=== PATIENT | female | born 1950 | race Caucasian/White ===

== ENCOUNTER 2020-12-02 07:13 | Outpatient (CLI) | payer MEDICARE, SELFPAY ==
[2020-12-02 08:24] LABS: LDL Cholesterol Direct 116 mg/dL
[2020-12-02 08:28] LABS: Alanine Aminotransferase 26 U/L (4-35); Albumin Level 4.6 g/dL (3.5-5.1); Alkaline Phosphatase 58 U/L (38-126); Anion Gap 10 mmol/L (8-16); Aspartate Amino Transferase 38 U/L (14-36); Bilirubin,Total 0.9 mg/dL (0.2-1.3); Blood Urea Nitrogen 9 mg/dL (7-17); Calcium 9.1 mg/dL (8.4-10.2); Carbon Dioxide 27 mmol/L (22-30); Chloride 95 mmol/L (98-107); Cholesterol 246 mg/dL (0-200); Estimated Glomerular Filt Rate > 60; Glucose 120 mg/dL (65-105); Potassium 4.3 mmol/L (3.4-5.0); Sodium 132 mmol/L (137-145); Triglycerides 102 mg/dL (<150)
[2020-12-02 08:35] LABS: HDL Direct 119 mg/dL
[2020-12-02 08:39] LABS: Hemoglobin A1C 4.9 % (<5.7)
== END 2020-12-02 07:14 | disposition home or self-care (01) ==
PROVIDERS: PCP Emergency Medicine; Visit Provider Emergency Medicine
DX: E78.5 Hyperlipidemia, unspecified (principal); E11.9 Type 2 diabetes mellitus without complications
CPT/HCPCS: 36415; 80053; 80061; 83036

== ENCOUNTER 2020-12-10 07:09 | Outpatient (CLI) | payer MEDICARE, SELFPAY ==
[2020-12-10 07:34] LABS: Hemoglobin A1C 4.9 % (<5.7)
== END 2020-12-10 07:10 | disposition home or self-care (01) ==
PROVIDERS: PCP Emergency Medicine; Visit Provider Emergency Medicine
DX: R73.09 Other abnormal glucose (principal)
CPT/HCPCS: 36415; 83036

== ENCOUNTER 2023-07-28 12:53 | Emergency (ER) | payer MEDICARE, SELFPAY ==
--- NOTE | ~2023-07-28 | XR_ITS ---
EXAMINATION: XR chest 2V DATE: 07/28/2023 13:54 INDICATION: Shortness of breath. Chest tightness. TECHNIQUE: Frontal and lateral views of the chest were obtained. COMPARISON: Chest 2 views 07/01/2015 FINDINGS: There is mild atelectasis in right mid and lower lung zones and left lower lung zone. No pl eural effusion or pneumothorax. The heart size is normal. There are old healed bilateral rib fracture s. There are 2 burst fractures in thoracic spine, likely chronic. There is an old healed fracture of the sternum. IMPRESSION: 1. Mild atelectasis in right mid and lower lung zones and left lower lung zone. Reviewed, dictated and finalized at location A.
[2023-07-28 12:48] VITALS: BP 137/77; PULSE 112; RESP 22; TEMP 36.8; O2SAT 94
--- NOTE | 2023-07-28 12:57 | ECG_ITS ---
Measurements Intervals [place] Rate: 90 P: 64 MT: 171 QRS: -26 QRSD: 81 T: 41 QT: 365 QTc: 448 Interpretive Statements SINUS RHYTHM EARLY PRECORDIAL R/S TRANSITION INFERIOR INFARCT, AGE INDETERMINATE BASELINE ARTIFACT- I, AVR, AVL, AVF ABNORMAL ECG NO PREVIOUS ECG AVAILABLE FOR COMPARISON Electronically Signed On 07-28-2023 13:05:58 CDT by Jersey España D.O.
[2023-07-28 12:58] VITALS: O2SAT 93
[2023-07-28 13:15] LABS: Basophils Absolute Auto 0.1 K/mm3 (0.0-0.1); Basophils Percent Auto 0.7 % (0.2-1.2); Eosinophils Absolute Auto 0.3 K/mm3 (0-0.3); Eosinophils Percent Auto 2.9 % (0-4.4); Hemoglobin 12.8 g/dL (12.0-15.0); Immature Granulocyte Absolute 0.03 K/mm3 (0.00-0.031); Immature Granulocyte Percent A 0.3 % (0-0.5); Lymphocytes Absolute Auto 2.86 K/mm3 (0.9-3.2); Lymphocytes Percent Auto 31.4 % (18.3-44.2); Mean Corpuscular HGB Conc 33.7 g/dl (32-36); Mean Corpuscular Hemoglobin 31.8 pg (26-34); Mean Corpuscular Volume 94.5 fl (80-100); Monocytes Absolute Auto 0.9 K/mm3 (0.1-0.6); Monocytes Percent Auto 9.4 % (2.6-8.5); Neutrophils Absolute Auto 5.1 K/mm3 (1.3-6.7); Neutrophils Percent Auto 55.3 % (45.5-73.1); Platelet Count Result 284 k/mm3 (150-375); Red Blood Count 4.02 M/mm3 (4.2-5.4); Red Cell Distribution Width 15.3 % (11.5-14.5); White Blood Count 9.1 K/mm3 (4.5-10.0)
[2023-07-28 13:27] LABS: Alanine Aminotransferase 24 U/L (6-35); Albumin Level 4.4 g/dL (3.5-5.1); Alkaline Phosphatase 84 U/L (38-126); Anion Gap 16 mmol/L (8-16); Aspartate Amino Transferase 37 U/L (14-36); Bilirubin,Total 0.4 mg/dL (0.2-1.3); Blood Urea Nitrogen 12 mg/dL (7-17); Calcium 8.5 mg/dL (8.4-10.2); Carbon Dioxide 20 mmol/L (22-30); Chloride 100 mmol/L (98-107); Estimated Glomerular Filt Rate > 60; Glucose 102 mg/dL (65-110); Potassium 4.2 mmol/L (3.4-5.0); Sodium 136 mmol/L (137-145)
--- NOTE | 2023-07-28 14:52 | ED.SOB ---
HPI - SOB/Dyspnea General Chief Complaint: Shortness of Breath/Dyspnea Stated Complaint: chest tightness, sob Time Seen by Provider: 07/28/23 13:37 Source: patient Limitations: no limitations History of Present Illness HPI Narrative: 72-year-old female presents today with complaints of choking on a piece of chicken with shortness of breath for about 15 minutes after. Patient states that she choked on a piece of chicken was able to cough it but complained of shortness of breath for about 15 minutes after. Her assisted living wanted her to come in to be evaluated. Upon arrival patient denied any chest pain, shortness of breath, or any other difficulties at this time. Related Data Home Medications Medication Instructions Recorded Confirmed cholecalciferol (vitamin D3) 100 4,000 unit PO DAILY 12/12/19 01/21/22 mcg (4,000 unit) capsule Allergies Allergy/AdvReac Type Severity Reaction Status Date / Time No Known Allergies Allergy Verified 07/28/23 13:04 Review of Systems Review of Systems: All systems reviewed & are unremarkable except as noted in HPI and below PMFSH Past Medical History Medical History (Updated 07/28/23 @ 16:09 by Maricarmen Mcgrath APRN) Depression Hyperglycemia Hyperlipidemia Osteoporosis Family History Family History Father Patient's father is , Onset Age: 95 Mother Family history of malignant neoplasm, Onset Age: 76 Social History Social History Smoking status: Heavy tobacco smoker Alcohol intake: current Exam Const: General: cooperative, healthy appearing, comfortable, no acute distress and well developed Orientation/consciousness: patient oriented x3 HENMT: Head: normal to inspection Eyes: General: appearance normal, both eyes and all related structures Resp: Effort & Inspection: normal respiratory effort and able to speak in complete sentences Auscultation: clear to auscultation bilaterally Cardio: Rate: regular rate Rhythm: regular rhythm Heart sounds: S1 normal heart sound present and S2 normal heart sound present Neuro: General: patient oriented x3 Course Vital Signs Vital signs: Vital Signs Temperature 98.3 F 07/28/23 12:48 Pulse Rate 112 H 07/28/23 12:48 Respiratory Rate 22 H 07/28/23 12:48 Blood Pressure 137/77 07/28/23 12:48 Pulse Oximetry 94 07/28/23 12:48 Oxygen Delivery Room Air 07/28/23 12:48 Temperature 98.3 F 07/28/23 12:48 Pulse Rate 112 H 07/28/23 12:48 Respiratory Rate 22 H 07/28/23 12:48 Blood Pressure 137/77 07/28/23 12:48 Pulse Oximetry 93 07/28/23 12:58 Oxygen Delivery Room Air 07/28/23 12:58 MDM - SOB/Dyspnea MDM Narrative Medical decision making narrative: 72-year-old female HPI as noted. Differential as below. Work-up to include CBC, CMP, troponin, EKG, chest x-ray. Patient without chest pain during her stay in. CBC without concerning findings. CMP without concerning findings. Chest x-ray with nothing acute. Troponin negative. EKG showing sinus rhythm. Patient will be discharged back to assisted living. She is in agreement with plan of care. Differential Diagnosis Differential diagnosis: Likely community acquired pneumonia and other (Anxiety, SD, pneumonia) Medical Records Attestation: I reviewed the patient's medical records. Lab Data Attestation: I reviewed the patient's lab results. 07/28/23 13:09 07/28/23 13:09 Labs: Lab Results 07/28/23 Range/Units 13:09 WBC 9.1 (4.5-10.0) K/mm3 RBC 4.02 L (4.2-5.4) M/mm3 Hgb 12.8 (12.0-15.0) g/dL Hct 38.0 (37.0-47.0) % MCV 94.5 (80-100) fl MCH 31.8 (26-34) pg MCHC 33.7 (32-36) g/dl RDW 15.3 H (11.5-14.5) % Plt Count 284 (150-375) k/mm3 MPV 9.0 (7.4-10.4) fl Immature Gran % (Auto) 0.3 (0-0.5) % Neut % (Auto) 55.3 (45.5-73.1)
[2023-07-28 15:38] LABS: Troponin I < 0.012 ng/mL (0.000-0.034)
== END 2023-07-28 16:18 | disposition home or self-care (01) ==
PROVIDERS: General Practice; Emergency Provider Nurse Practitioner Family; PCP Nurse Practitioner Family
DX: R07.9 Chest pain, unspecified (principal); E78.5 Hyperlipidemia, unspecified; F17.200 Nicotine dependence, unspecified, uncomplicated
CPT/HCPCS: 36415; 71046; 80053; 84484; 85025; 93005; 99284

== ENCOUNTER 2024-01-28 11:42 | Emergency (ER) | payer MEDICARE, SELFPAY ==
--- NOTE | ~2024-01-28 | XR_ITS ---
XR pelvis 1-2V DATE: 01/28/2024 12:35 INDICATION: Trauma TECHNIQUE: 2 AP views COMPARISON: None FINDINGS: Osteopenia. Dextroscoliosis and degenerative change of the lumbar spine. Normal alignment at the pubic symphysis and sacroiliac joints. No pelvic fracture or bone destruction is detected. Hip joint spaces appear symmetric and well preser tawana. No fracture or dislocation is evident at either hip. IMPRESSION: Osteopenia Reviewed, dictated and finalized at location A. IMPRESSION: Osteopenia
--- NOTE | ~2024-01-28 | CT_ITS ---
EXAMINATION: CT brain wo con DATE: 01/28/2024 13:07 INDICATION: Left-sided weakness. Transient ischemic attack 2 days ago. TECHNIQUE: Computed tomography (CT) of the head was performed without intravenous contrast. The mA wa s adjusted according to patient size. Iterative reconstruction technique was employed. Exam dose: 11 35.00 mGy-cm total exam DLP. COMPARISON: None FINDINGS: No intracranial mass lesion or hemorrhage, midline shift or mass effect is noted. Small lac unar infarct in the right periventricular area. Bilateral carotid siphon internal carotid artery calcifications. Nonspecific diminished attenuation c erebral white matter, likely due to chronic small vessel ischemic changes. No subdural or epidural hematoma. There is central and cortical cerebral and cerebellar moderate atrophy. No skull fracture or bone destruction is detected. The paranasal sinuses and mastoid air cells are unremarkable. IMPRESSION: Small chronic lacunar infarct in the right periventricular area. Diminished attenuation cerebral white matter, likely due to chronic small vessel ischemic changes. Bi lateral carotid siphon internal carotid artery calcifications Reviewed, dictated and finalized at Location A. Reviewed, dictated and finalized at location A. IMPRESSION: Small chronic lacunar infarct in the right periventricular area. Diminished attenuation cerebral white matter, likely due to chronic small vesse l ischemic changes. Bilateral carotid siphon internal carotid artery calcificat ions
--- NOTE | ~2024-01-28 | CT_ITS ---
EXAMINATION: CTA brain carotid DATE: 01/28/2024 13:51 INDICATION: Left hemiparesis. TECHNIQUE: Computed tomographic angiography (CTA) of the head was performed with 100 mL Omnipaque-350 intravenous contrast. CTA of the neck was performed with intravenous contrast. Automated exposure co ntrol and iterative reconstruction technique were employed. The dose-length product was 937.36 mGy-cm . Maximum intensity projection and volume rendered 3D-reconstructions were created by the [employer] t on a separate workstation. COMPARISON: Head CT 01/28/2024 FINDINGS: HEAD CTA: There are scattered areas of low attenuation in the cerebral white matter. There is no intr acranial hemorrhage, acute infarction, or abnormal intracranial mass lesion. The ventricles are brigido l in size. The orbits are normal. There is mild mucosal thickening in the ethmoid sinuses. The mastoi d air cells are normal. Right vertebral artery is dominant. There is no significant stenosis of basil ar artery or the posterior cerebral arteries. The posterior communicating arteries are normal. There is no significant stenosis of intracranial internal carotid arteries or anterior cerebral arteries. A nterior communicating artery is normal. 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 There is no aneurysm. NECK CTA: There are airspace opacities in left upper lobe and superior segment left lower lobe. There are mild airspace opacities in right upper lobe. There is mediastinal and left hilar lymphadenopathy . There is left supraclavicular lymphadenopathy. There is no significant stenosis of the vertebral nati dies. There is plaque in the proximal internal carotid arteries. There is 0% stenosis of the proximal right internal carotid artery relative to normal distal artery lumen diameter (NASCET criteria). The re is 0% stenosis of the proximal left internal carotid artery relative to normal distal artery lumen diameter. There is severe cervical spondylosis. IMPRESSION: 1. Mild nonspecific cerebral white matter disease, which likely represents chronic small vessel ische florence disease. 2. 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 3. 0% stenosis of the proximal internal carotid arteries relative to normal distal artery lumen diame ters (NASCET criteria). Reviewed, dictated and finalized at location E. IMPRESSION: 1. Mild nonspecific cerebral white matter disease, which likely represents sparmaker ross small vessel ischemic disease. 2. 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 3. 0% stenosis of the proximal internal carotid arteries relative to normal dis jatin artery lumen diameters (NASCET criteria).
--- NOTE | ~2024-01-28 | XR_ITS ---
XR chest 1V portable DATE: 01/28/2024 12:35 INDICATION: Left-sided weakness. Fall. TECHNIQUE: Portable AP chest on 01/27/2022 4 at 1233 hours COMPARISON: 07/28/2023 2 view chest FINDINGS: There is patchy infiltrate in the left midlung. Mild discoid atelectasis or scarring in the right lower lung. Normal heart size. Aortic calcification and unfolding. Levoscoliosis and degenerative spurring of the thoracic spine. Diffuse osteopenia. IMPRESSION: Patchy infiltrate, left midlung Mild discoid atelectasis or scarring, right lower lung Reviewed, dictated and finalized at location A.
[2024-01-28 11:43] VITALS: BP 165/80; PULSE 87; RESP 18; TEMP 37.2; O2SAT 95
[2024-01-28 12:02] VITALS: PULSE 88
--- NOTE | 2024-01-28 12:03 | ECG_ITS ---
Measurements Intervals [place] Rate: 87 P: 46 NE: 152 QRS: -5 QRSD: 73 T: -1 QT: 368 QTc: 443 Interpretive Statements SINUS RHYTHM INFERIOR INFARCT, AGE INDETERMINATE BASELINE ARTIFACT- I, II, III, AVR, AVL, AVF, V1-V6 ABNORMAL ECG COMPARED TO ECG 07/28/2023 13:00:45 NO SIGNIFICANT CHANGES Electronically Signed On 01-28-2024 15:10:34 CDT by Jersey España D.O.
[2024-01-28 12:12] LABS: Glucose Point of Care 153 mg/dl (65-105)
[2024-01-28 12:20] VITALS: BP 161/74; PULSE 97; RESP 20; O2SAT 96
--- NOTE | 2024-01-28 12:22 | ED.WEAKNESS ---
HPI - Weakness General Chief complaint: Weakness Stated complaint: weakness Time Seen by Provider: 01/28/24 12:07 Source: patient and EMS Mode of arrival: EMS Limitations: no limitations History of Present Illness HPI Narrative: 73-year-old female presenting for multiple complaints today. Patient lives at a assisted living facility and had a fall this morning. Staff found her on the ground. When they got her up they found that she seemed to be weak on her left side compared to right. Patient states she just feels weak all over. She says she got up this morning and felt weak and then fell down. Currently asymptomatic per patient. All other symptoms and complaints are negative as per ROS. According to EMS, assisted living facility staff says patient had a TIA on Monday but they have no further information about this at all consistent which is in the chart and they did not know where she went and patient also has no idea. Related Data Home Medications Medication Instructions Recorded Confirmed cholecalciferol (vitamin D3) 100 4,000 unit PO DAILY 12/12/19 01/21/22 mcg (4,000 unit) capsule Allergies Allergy/AdvReac Type Severity Reaction Status Date / Time No Known Allergies Allergy Verified 07/28/23 13:04 Review of Systems Review of Systems: All systems reviewed & are unremarkable except as noted in HPI and below PMFSH Past Medical History Medical History (Updated 01/28/24 @ 14:58 by bAhishek Echevarria MD) Depression Hyperglycemia Hyperlipidemia Osteoporosis Family History Family History Father Patient's father is , Onset Age: 95 Mother Family history of malignant neoplasm, Onset Age: 76 Social History Social History Smoking status: Heavy tobacco smoker Alcohol intake: current Exam Narrative: Constitutional: Generally well appearing, no acute distress Head: Atraumatic, no deformities. Eyes: Pupils equal, round, and reactive to light. Neck: Supple, no tracheal deviation, no JVD. ENMT: Mucous membranes moist Cardiovascular: S1, S2 auscultated. No murmurs, rubs, or gallops. No S3/S4. Normal Distal pulses. No peripheral edema. Respiratory: Lung sounds equal. No wheezes, rales, or rhonchi. Gastrointestinal: Abdomen was soft and non-tender. Non-distended. No rebound or guarding. Genitourinary: Deferred Musculoskeletal: Normal muscle tone and bulk. No obvious deformities or tenderness over extremities. Skin: No rashes. Neurological: Strength 5/5 in right-sided extremities, 4/5 in left-sided extremities. Cranial nerves I-XII grossly intact. Distal sensation intact. Appears to have some left hemineglect. When asked to lift up both arms, she will only lift the right arm. Mental Status: Awake, alert and oriented x3. Follows commands Course Vital Signs Vital signs: Vital Signs Temperature 37.2 C 01/28/24 11:43 Pulse Rate 87 01/28/24 11:43 Respiratory Rate 18 01/28/24 11:43 Blood Pressure 165/80 H 01/28/24 11:43 Pulse Oximetry 95 01/28/24 11:43 Oxygen Delivery Room Air 01/28/24 11:43 Temperature 37.2 C 01/28/24 11:43 Pulse Rate 95 01/28/24 13:52 Respiratory Rate 18 01/28/24 13:52 Blood Pressure 156/91 H 01/28/24 13:52 Pulse Oximetry 98 01/28/24 13:52 Oxygen Delivery Room Air 01/28/24 11:43 MDM - Weakness MDM Narrative Medical decision making narrative: 73-year-old female presenting for concerns for possible stroke after a fall at her nursing facility today. Found on the ground this morning. Unknown last known well however staff Report likely around 9:00 p.m. last night. Patient drink a bottle wine last night which is typical for her. on exam she is hypertensive, generally well-appearing, but seems to have some left-sided bell-neglect. When asked to lift her arms up, she only left upper r
[2024-01-28 12:24] LABS: Basophils Percent Auto 0.3 % (0.2-1.2); Eosinophils Percent Auto 0.1 % (0-4.4); Hematocrit 39.7 % (37.0-47.0); Hemoglobin 13.7 g/dL (12.0-15.0); Immature Granulocyte Absolute 0.07 K/mm3 (0.00-0.031); Immature Granulocyte Percent A 0.5 % (0-0.5); Immature Platelet Fraction Pct 6.7 % (0.9-11.2); Lymphocytes Absolute Auto 0.89 K/mm3 (0.9-3.2); Lymphocytes Percent Auto 6.1 % (18.3-44.2); Mean Corpuscular HGB Conc 34.5 g/dl (32-36); Mean Corpuscular Hemoglobin 32.1 pg (26-34); Mean Platelet Volume 10.3 fl (7.4-10.4); Monocytes Absolute Auto 1.1 K/mm3 (0.1-0.6); Monocytes Percent Auto 7.8 % (2.6-8.5); Neutrophils Absolute Auto 12.4 K/mm3 (1.3-6.7); Neutrophils Percent Auto 85.2 % (45.5-73.1); Platelet Count Result 134 k/mm3 (150-375); Red Blood Count 4.27 M/mm3 (4.2-5.4); Red Cell Distribution Width 13.7 % (11.5-14.5); White Blood Count 14.6 K/mm3 (4.5-10.0)
[2024-01-28 12:34] LABS: INR 1.2; Partial Thromboplastin Time 30.1 SECONDS (22.3-36.8)
[2024-01-28 12:35] LABS: Alanine Aminotransferase 22 U/L (6-35); Albumin Level 4.5 g/dL (3.5-5.1); Alkaline Phosphatase 68 U/L (38-126); Anion Gap 5 mmol/L (8-16); Aspartate Amino Transferase 46 U/L (14-36); Blood Urea Nitrogen 13 mg/dL (7-17); Calcium 9.6 mg/dL (8.4-10.2); Carbon Dioxide 27 mmol/L (22-30); Chloride 99 mmol/L (98-107); Estimated Glomerular Filt Rate > 60; Ethanol < 10 mg/dL (<10); Glucose 137 mg/dL (65-110); Potassium 3.9 mmol/L (3.4-5.0); Sodium 131 mmol/L (137-145)
[2024-01-28 12:47] LABS: Troponin I 0.904 ng/mL (0.000-0.034)
[2024-01-28] MEDS: SODIUM CHLORIDE 0.9% IV 1,000 ML 999 ML IV CONT (13:15)
--- NOTE | 2024-01-28 13:40 | ECG_ITS ---
Measurements Intervals [place] Rate: 92 P: 70 CO: 196 QRS: -8 QRSD: 75 T: 24 QT: 379 QTc: 471 Interpretive Statements SINUS RHYTHM INFERIOR INFARCT, AGE INDETERMINATE BASELINE ARTIFACT- I, II, III, AVR, AVL, AVF, V1-V6 ABNORMAL ECG COMPARED TO ECG 01/28/2024 12:10:09 NO SIGNIFICANT CHANGES Electronically Signed On 01-28-2024 15:17:07 CDT by Jersey España D.O.
[2024-01-28 13:52] VITALS: BP 156/91; PULSE 95; RESP 18; O2SAT 98
== END 2024-01-28 15:12 | disposition short-term general hospital (02) ==
PROVIDERS: Emergency Medicine; Emergency Provider Emergency Medicine; PCP Nurse Practitioner Family
DX: I63.9 Cerebral infarction, unspecified (principal); E78.5 Hyperlipidemia, unspecified; M81.0 Age-related osteoporosis without current pathological fracture; F17.200 Nicotine dependence, unspecified, uncomplicated; Z79.899 Other long term (current) drug therapy; R90.82 White matter disease, unspecified; I66.01 Occlusion and stenosis of right middle cerebral artery; R94.31 Abnormal electrocardiogram [ECG] [EKG]; M85.88 Other specified disorders of bone density and structure, other site
CPT/HCPCS: 36415; 70450; 70496; 70498; 71045; 72170; 80053; 80307; 82948; 84484; 85025; 85055; 85610; 85730; 93005; 96361; 96365; 99285; J0696; J7030; Q9967